=== PATIENT | female | born 1945 | race Caucasian/White ===

== ENCOUNTER 2016-07-27 09:46 | Inpatient (IN) | payer BC ==
[2016-07-26 23:09] LABS: A/G RATIO 1.4 (0.7-1.9); ALKALINE PHOSPHATASE 56 U/L (45-117); CALCIUM, SERUM 8.4 MG/DL (8.5-10.4); CHLORIDE, SERUM 106 MMOL/L (96-112); CO2 (CARBON DIOXIDE) 29 MMOL/L (24-34); CREATININE 0.94 MG/DL (0.55-1.02); GFR AFRICAN AMERICAN 72 ML/MIN (>=60); GFR NON AFRICAN AMERICAN 62 ML/MIN (>=60); GLOBULIN 2.8 G/DL (2.5-4.1); GLUCOSE, SERUM 88 MG/DL (60-99); POTASSIUM, SERUM 4.2 MMOL/L (3.5-5.3); SGOT(AST) 27 U/L (5-40); SGPT(ALT) 16 U/L (5-65); SODIUM, SERUM 142 MMOL/L (135-148); TOTAL BILIRUBIN 0.7 MG/DL (0-1.2); TOTAL PROTEIN 6.8 G/DL (6.0-8.5)
[2016-07-26 23:10] LABS: BUN (BLOOD UREA NITROGEN) 19 MG/DL (6-23); CPK 119 U/L (0-200); ULTRASENSITIVE TSH 0.951 MCIU/ML (0.358-3.740)
[2016-07-26 23:44] LABS: CK-MB 7.8 NG/ML
[2016-07-26 23:48] LABS: CKMB INDEX (NOT ORD) 6.6; TROPONIN I 1.15 NG/ML (<0.05)
--- NOTE | ~2016-07-27 | PRECARD ---
H&P [facility] [place] [address] [place]. [address] NAME: AVTAR BOATENG : 47 STATUS : ADM IN [facility]#: [id number] AGE: 70 ADM/REG DATE : 07/27/16 MR#: [id number] REPORT SERV DATE: 07/27/16 DICTATED BY: PARRISH CHATTERJEE DATE: 07/27/16 REPORT STATUS : Draft TRANSCRIBED BY: JOSEFA DATE: 07/27/16 DATE OF ADMISSION: 07/27/2016 HISTORY OF PRESENT ILLNESS: Ms. Avtar Boateng is a 70-year-old woman who comes to the emergency room with chest pain. Ms. Boateng has no known cardiovascular history. Two days ago, Tuesday, while sitting in tenriism, she developed chest discomfort that lasted several hours, she describes a 3/10 severity chest pressure. This was accompanied by diaphoresis and pallor. The symptoms persisted through the day and resolved before she went to bed. She has had no recurrence. She saw Dr. Srinivasan yesterday with these symptoms and was referred to [facility] today. Again, she has had no symptoms since that event. She has had no orthopnea or PND. No palpitations. No stroke or stroke-like symptoms. She has no history of tobacco use, diabetes, or hypertension. No history of stroke or stroke-like symptoms. PAST MEDICAL HISTORY: Unremarkable. MEDICATIONS: Aspirin, Lipitor, Klonopin, Tylenol PM, Zoloft, and [id number] eye drops. FAMILY HISTORY: Positive for coronary artery disease, premature by description. REVIEW OF SYSTEMS: Complete review of systems obtained. Pertinent negative and unremarkable except as noted above. All systems addressed. PHYSICAL EXAMINATION: VITAL SIGNS: Blood pressure 112/60. LABORATORY DATA: Troponin yesterday was 1.5, today is 0.5. EKG is sinus rhythm with no ischemia. ASSESSMENT: Ms. Boateng is a very nice 70-year-old woman who had chest discomfort about 48 hours ago, troponin level was 1.5 yesterday, 0.5 today. Her EKG shows no ischemia. Her presentation is consistent with a lel-OA-qyfcsdz elevation myocardial infarction. PLAN: To proceed cardiac catheterization, possible angioplasty. I discussed the risks, benefits, and alternatives with Ms. Boateng. She understands and requests to proceed. MT/MODL H&P [facility] [place] [address] [place]. [address] NAME: AVTAR BOATENG : 47 STATUS : ADM IN [facility]#: [id number] AGE: 70 ADM/REG DATE : 07/27/16 MR#: [id number] REPORT SERV DATE: 07/27/16 DICTATED BY: PARRISH CHATTERJEE DATE: 07/27/16 REPORT STATUS : Draft TRANSCRIBED BY: JOSEFA DATE: 07/27/16 Parrish Chatterjee M.D. / [id number] CC: Wiley Srinivasan M.D.
[~2016-07-27 09:46] MED LIST: Citracal PO; KLONO5 PO; KLONOPIN PO; LIPITOR10 PO; PRIN10 PO; PROBIOTIC PO; TYLENOL PM PO; ZOL50 PO; ZOLOFT PO
[2016-07-27 10:36] LABS: BASOPHILS 0.2 %; BASOPHILS ABSOLUTE 0.01 10/3/uL (0.0-0.16); EOSINOPHILS 0.8 %; EOSINOPHILS ABSOLUTE 0.04 10/3/uL (0.0-0.53); ER CBC TAT 0 Hrs 03 Mins; HEMATOCRIT 39.2 % (36.0-48.0); HEMOGLOBIN 13.1 g/dL (12.0-16.0); LYMPHOCYTES 31.8 %; LYMPHOCYTES ABSOLUTE 1.69 10/3/uL (0.67-4.30); MANUAL DIFF NO %; MEAN CORPUS HGB CONC 33.4 g/dL (32.0-36.0); MEAN CORPUSCULAR HEMOGLOB 29.8 pg (26.0-34.0); MEAN CORPUSCULAR VOLUME 89.3 fL (80-100); MEAN PLATELET VOLUME 9.6 fL (9.2-13.0); MONOCYTES 7.7 %; MONOCYTES ABSOLUTE 0.41 10/3/uL (0.21-1.20); NEUTROPHILS 59.5 %; NEUTROPHILS ABSOLUTE 3.17 10/3/uL (2.02-8.40); PLATELET COUNT 170 10/3/uL (150-400); RBC DISTRIBUTION WIDTH 13.3 % (12.0-16.0); RED CELL COUNT 4.39 10/6/uL (4.0-5.6); WHITE BLOOD CELLS 5.3 10/3/uL (4.5-10.5)
[2016-07-27] MEDS ORDERED: ZOL50 PO (10:37)
[2016-07-27] MEDS ORDERED: KLONO5 PO (10:37)
[2016-07-27] MEDS ORDERED: LIPITOR10 PO (10:38)
[2016-07-27] MEDS ORDERED: ASAB PO (10:38)
[2016-07-27] MEDS ORDERED: TYLENOL PM PO (10:38)
[2016-07-27] MEDS ORDERED: REFRES1 OPH (10:39)
[2016-07-27 10:42] LABS: PARTIAL THROMBO TIME 29.6 SEC (22.5-37.2); PROTIME (NOT ORD) 13.4 SEC (12.0-14.5)
[2016-07-27 10:52] LABS: BUN (BLOOD UREA NITROGEN) 14 MG/DL (6-23); CALCIUM, SERUM 8.2 MG/DL (8.5-10.4); CHEST PAIN PROFILE TAT 0 Hrs 19 Mins; CHLORIDE, SERUM 107 MMOL/L (96-112); CO2 (CARBON DIOXIDE) 27 MMOL/L (24-34); CREATININE 0.67 MG/DL (0.55-1.02); GFR AFRICAN AMERICAN 104 ML/MIN (>=60); GFR NON AFRICAN AMERICAN 90 ML/MIN (>=60); GLUCOSE, SERUM 83 MG/DL (60-99); POTASSIUM, SERUM 4.1 MMOL/L (3.5-5.3); SODIUM, SERUM 141 MMOL/L (135-148)
[2016-07-27 13:58] LABS: CHOL/HDL RATIO(NOT ORDER) 2.1 (0-5); CHOLESTEROL 145 MG/DL (< 200); HDL CHOLESTEROL 69 MG/DL (> 49); LDL CHOLESTEROL 55 MG/DL (< 130); NON-HDL CHOLESTEROL 76 MG/DL (< 160); TRIGLYCERIDE 106 MG/DL (< 150)
[2016-07-28 01:59] LABS: ASCORBIC ACID (UR NOT ORDER) NEG (NEG); BILIRUBIN, URINE NEGATIVE (NEG); KETONE, URINE NEGATIVE (NEG); LEUKOCYTE ESTERASE(NOT OR MOD (NEG); WBC (NOT ORDERED) (RFLEX) 3 (0-5)
[2016-07-28 02:02] LABS: BASOPHILS 0.2 %; BASOPHILS ABSOLUTE 0.01 10/3/uL (0.0-0.16); EOSINOPHILS 0.8 %; EOSINOPHILS ABSOLUTE 0.05 10/3/uL (0.0-0.53); HEMATOCRIT 38.1 % (36.0-48.0); HEMOGLOBIN 12.8 g/dL (12.0-16.0); IMMATURE GRANULOCYTES 0.2 %; IMMATURE GRANULOCYTES ABSOLUTE 0.01 10/3/uL (0.0-0.11); LYMPHOCYTES 31.9 %; LYMPHOCYTES ABSOLUTE 2.06 10/3/uL (0.67-4.30); MEAN CORPUS HGB CONC 33.6 g/dL (32.0-36.0); MEAN CORPUSCULAR HEMOGLOB 30.2 pg (26.0-34.0); MEAN CORPUSCULAR VOLUME 89.9 fL (80-100); MEAN PLATELET VOLUME 9.5 fL (9.2-13.0); MONOCYTES ABSOLUTE 0.45 10/3/uL (0.21-1.20); NEUTROPHILS 59.9 %; NEUTROPHILS ABSOLUTE 3.88 10/3/uL (2.02-8.40); PLATELET COUNT 170 10/3/uL (150-400); RBC DISTRIBUTION WIDTH 13.1 % (12.0-16.0); RED CELL COUNT 4.24 10/6/uL (4.0-5.6); WHITE BLOOD CELLS 6.5 10/3/uL (4.5-10.5)
[2016-07-28 02:06] LABS: MANUAL DIFF NO %
[2016-07-28] MEDS ORDERED: COREG3 PO (09:37)
[2016-07-28] MEDS ORDERED: PRIN10 PO (09:38)
== END 2016-07-28 10:27 | disposition home or self-care (01) | DRG 282 ==
LOC: ER 09:46 → 6NO 11:30 → SSU1 12:09 → 7NO 18:43
PROVIDERS: Emergency Medicine; Family Medicine; Internal Medicine Cardiovascular Disease
PROC: 4A023N7 Measurement of Cardiac Sampling and Pressure, Left Heart, Percutaneous Approach (ICD-10-PCS; principal; 2016-07-27)
PROC: B2111ZZ Fluoroscopy of Multiple Coronary Arteries using Low Osmolar Contrast (ICD-10-PCS; 2016-07-27)
PROC: B2151ZZ Fluoroscopy of Left Heart using Low Osmolar Contrast (ICD-10-PCS; 2016-07-27)
DX: I21.4 Non-ST elevation (NSTEMI) myocardial infarction (principal); I10 Essential (primary) hypertension
CPT/HCPCS: 71010; 80048; 80053; 80061; 81001; 82550; 82553; 83735; 84443; 84484; 85025; 85610; 85730; 87086; 93005; 93458; 96365; 96376; 99152; 99153; 99285; A9270-GY; C1760; C1769; J2250; J3010; Q9967

== ENCOUNTER 2016-08-19 07:52 | Day surgery (SDC) | payer BC ==
[~2016-08-19 07:52] MED LIST changes: +ASAB PO; +COREG3 PO; +REFRES1 OPH
== END 2016-08-19 23:59 | disposition home or self-care (01) ==
LOC: SDC 07:52
PROVIDERS: Ophthalmology
PROC: 08CDXZZ Extirpation of Matter from Left Iris, External Approach (ICD-10-PCS; principal; 2016-08-19 13:00)
DX: H40.20X0 Unspecified primary angle-closure glaucoma, stage unspecified (principal)
CPT/HCPCS: A9270-GY